=== PATIENT | male | born 2000 | race Hispanic/Latino ===

== ENCOUNTER 2020-03-19 18:59 | Emergency (ER) | payer MEDICAID ==
[2020-03-19 20:22] VITALS: BP 106/63
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
== END 2020-03-19 20:36 | disposition left against medical advice (07) ==
LOC: ED 18:59
DX: Z00.00 Encounter for general adult medical examination without abnormal findings (principal); Z53.21 Procedure and treatment not carried out due to patient leaving prior to being seen by health care provider

== ENCOUNTER 2021-08-25 09:23 | Emergency (ER) | payer MEDICARE ==
[2021-08-25] MEDS ORDERED: SODIUM CHLORIDE 0.9% 1000 ML 1,000 ML IV ONE (09:40)
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
[2021-08-25 11:02] LABS: Hematocrit 36.2 % (35.5-45.6); Hemoglobin 11.3 gm/dl (11.8-15.2); Mean Corpuscular HGB Conc 31 % (32-34); Platelet Count 281 K/mm3 (140-440); Red Blood Count 5.32 M/mm3 (3.65-5.03)
[2021-08-25 11:22] LABS: Alanine Aminotransferase 13 units/L (7-56); Albumin 4.5 g/dL (3.9-5)
[2021-08-25 11:25] LABS: BUN/Creatinine Ratio 13; Bilirubin,Direct < 0.2 mg/dL (0-0.2); Blood Urea Nitrogen 9 mg/dL (9-20); Calcium 9.2 mg/dL (8.4-10.2); Hemolysis Index 1
[2021-08-25 11:43] LABS: Mean Corpuscular Volume 68 fl (84-94); Red Cell Distribution Width 20.7 % (13.2-15.2)
[2021-08-25 14:12] VITALS: BP 97/58
== END 2021-08-25 14:51 | disposition home or self-care (01) ==
LOC: ED 09:23
DX: R56.9 Unspecified convulsions (principal)
CPT/HCPCS: 36415; 80048; 80076; 85027; 96360; 96361; 99284

== ENCOUNTER 2021-11-16 20:56 | Emergency (ER) | payer MEDICARE ==
[2021-11-17] MEDS ORDERED: levETIRAcetam 1000 MG/NS 0.75% 1,000 MG/100 ML BAG IV ONE (00:19)
--- NOTE | 2021-11-17 00:26 | Emergency Department Report ---
ED Seizure HPI - General Chief Complaint: Seizure Stated Complaint: EYE INJURY Time Seen by Provider: 11/16/21 23:59 Source: patient Mode of arrival: Ambulatory Limitations: No Limitations - History of Present Illness Initial Comments: 20 yo M with autism brought in by mother with seizure episode and a fall this evening. Pt also struck the edge of his right eye on the banister and developed bruise. No other modifying or associated factors. MD Complaint: seizure - Related Data Allergies Allergy/AdvReac Type Severity Reaction Status Date / Time No Known Allergies Allergy Verified 08/25/21 09:27 ED Review of Systems ROS: Stated complaint: EYE INJURY Other details as noted in HPI Comment: All other systems reviewed and negative Eyes: other (right eye ecchymosis ) ED Past Medical Hx - Past Medical History Hx Psychiatric Treatment: Yes (Autism) - Social History Smoking Status: Never Smoker Substance Use Type: None ED Physical Exam - General Limitations: No Limitations General appearance: alert, in no apparent distress - Head Head exam: Present: other (right periorbital ecchymosis ) - Eye Eye exam: Present: normal appearance Pupils: Present: normal accommodation - ENT ENT exam: Present: normal exam, normal orophraynx, mucous membranes moist - Neck Neck exam: Present: full ROM. Absent: tenderness - Respiratory Respiratory exam: Present: normal lung sounds bilaterally. Absent: respiratory distress, accessory muscle use - Cardiovascular Cardiovascular Exam: Present: regular rate, normal rhythm, normal heart sounds - GI/Abdominal GI/Abdominal exam: Present: soft, normal bowel sounds. Absent: distended, tenderness - Extremities Exam Extremities exam: Absent: tenderness, pedal edema - Back Exam Back exam: Absent: tenderness - Neurological Exam Neurological exam: Present: alert, other (autism) - Skin Skin exam: Present: warm, ecchymosis (right periorbital ecchymosis ) ED Course Vital Signs 11/16/21 11/17/21 21:02 02:13 Temperature 98.3 F Pulse Rate 76 69 Respiratory 18 12 Rate Blood Pressure 136/88 114/72 [Right] O2 Sat by Pulse 100 100 Oximetry - Consultations Consultation #1: 11/17/21 03:45 Dr Coy trauma surgeon at [facility] consulted who accept pt for further evaluation and treatment ED Medical Decision Making - Lab Data Result diagrams: 11/17/21 00:56 11/17/21 00:56 - Medical Decision Making here with seizure associated with periorbital ecchymosis -- which raise concern for orbital fracture or entrapment-- so will get CT facial and for seizure will get CBC, CMP and UA -- CT facial FINDINGS: Facial soft tissues: Moderate diffuse edema/hematoma is seen in the superficial. Soft tissues of the right face in the maxillary region particularly but extending inferiorly to the mandible and superiorly to the right periorbital region. No soft tissue gas is seen. Facial bones: Depressed comminuted fracture of the mid to anterior aspect of the right zygomatic arch is noted. Fractures are also seen posteriorly at the junction of the zygomatic arch and the temporal bone just lateral to the temporomandibular joint. I do not see obvious fracture line extending into the mastoids though fracture line extends to the extreme anterior aspect of the mastoid area. Lateral wall of the right maxillary sinus is fractured at multiple sites and moderately depressed. No anterior or medial maxillary wall fractures are detected. Lateral wall of the right orbit shows a comminuted depressed fracture with protrusion of bone into the lateral rectus muscle. Fluoroscopy the right orbit shows a comminuted fracture with mild depression. No medial orbital wall fracture is detected nor in the superior orbital rim. Nasal septum appears intact and no nasal fractures are noted. No zygomatic fractures are seen. No left-sided fractures are detected. Paranasal sinuses: Right maxillary sinus is nearly filled with probable blood with partial air- fluid level seen. Mild mucosal thickening is seen in the left maxillary and ethmoid sinuses without air-fluid levels. Minimal mucosal thickening noted in right sphenoid sinus. Orbits: No significant abnormality. Visualized images of the intracranial space: No significant abnormality. Additional findings: None. IMPRESSION: Multiple right facial fractures involving the orbit, maxillary sinus, and zygomatic region as above. Protrusion of bone is seen impinging on the lateral rectus mu scle in its midportion but I do not see an obvious intraorbital hematoma or other intraorbital injury. Critical care attestation.: If time is entered above; I have spent that time in minutes in the direct care of this critically ill patient, excluding procedure time. ED Disposition Clinical Impression: Fracture of lateral orbital wall, right side, initial encounter for closed fracture Periorbital ecchymosis Qualifiers: Encounter type: initial encounter Laterality: right Qualified Code(s): S00.11XA - Contusion of right eyelid and periocular area, initial encounter Fall Qualifiers: Encounter type: initial encounter Qualified Code(s): W19.XXXA - Unspecified fall, initial encounter Zygomatic arch fracture Qualifiers: Encounter type: initial encounter Fracture type: closed Laterality: right Qualified Code(s): S02.40EA - Zygomatic fracture, right side, initial encounter for closed fracture Maxillary fracture Qualifiers: Encounter type: initial encounter Fracture type: closed Laterality: right Qual ified Code(s): S02.40CA - Maxillary fracture, right side, initial encounter for closed fracture Disposition: [facility] HOSPICE/MEDICAL FACILITY Is pt being admited?: No Does the pt Need Aspirin: No Condition: Stable Instructions: Facial or Scalp Contusion, [id number], Contusion, [id number] Referrals: KATE JIMENEZ MD [Primary Care Provider] - 3-5 Days Time of Disposition: 03:53
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
[2021-11-17 01:25] LABS: Basophils % (Auto) 0.1 % (0.0-1.8); Hematocrit 41.9 % (35.5-45.6); Hemoglobin 13.8 gm/dl (11.8-15.2); Lymphocytes # (Auto) 1.3 K/mm3 (1.2-5.4); Mean Corpuscular HGB Conc 33 % (32-34); Mean Corpuscular Volume 75 fl (84-94); Monocytes # (Auto) 0.8 K/mm3 (0.0-0.8); Monocytes % (Auto) 6.6 % (0.0-7.3); Platelet Count 290 K/mm3 (140-440); Red Blood Count 5.57 M/mm3 (3.65-5.03)
[2021-11-17 01:29] LABS: Red Cell Distribution Width 20.9 % (13.2-15.2)
[2021-11-17 02:14] VITALS: BP 114/72
[2021-11-17 02:30] LABS: Alanine Aminotransferase 36 units/L (7-56); Albumin 5.2 g/dL (3.9-5); BUN/Creatinine Ratio 13; Blood Urea Nitrogen 10 mg/dL (9-20); Calcium 9.6 mg/dL (8.4-10.2); Hemolysis Index 16
== END 2021-11-17 05:00 | disposition hospice, inpatient (51) ==
LOC: ED 20:56
DX: S02.85XA Fracture of orbit, unspecified, initial encounter for closed fracture (principal); S00.11XA Contusion of right eyelid and periocular area, initial encounter; S02.40EA Zygomatic fracture, right side, initial encounter for closed fracture; S02.40CA Maxillary fracture, right side, initial encounter for closed fracture; W19.XXXA Unspecified fall, initial encounter; Y93.9 Activity, unspecified; Y92.89 Other specified places as the place of occurrence of the external cause; Y99.8 Other external cause status
CPT/HCPCS: 36415; 70486; 80053; 85025; 96365; 99285; J1953